=== PATIENT | female | born 1995 | race Caucasian/White ===

== ENCOUNTER 2016-12-18 16:27 | Emergency (ER) | payer BC ==
[~2016-12-18] VITALS: Ht 165.1 cm; Wt 83.1 kg
[2016-12-18 16:36] VITALS: TEMP 36.7; Ht 165.1 cm; Wt 83.1 kg
--- NOTE | 2016-12-18 16:57 | EMERGENCY ROOM VISIT NOTE ---
History Report prepared by [place]: Dalton Giles Under the Supervision of: Dr. Jade Tran D.O. First contact with patient: 16:40 Chief Complaint: CHEST PAIN Stated Complaint: CHEST PAIN,SOB History of Present Illness The patient is a 21 year old female who presents to the Emergency Room with complaints of waxing and waning left-sided chest pain that started 2 nights ago. She says that she was sitting on her couch doing homework during the onset of left-sided chest pain as well as left-sided collar bone pain. The patient states that she thought it was from the position she was sitting in, so she tried to go to bed, but she had trouble sleeping due to worsened pain with breathing as well as worsened pain when laying on her left side. The patient states that she felt better laying on her right side. She notes that she continued to have trouble breathing with pain yesterday. The patient adds that her pain feels better when standing up, and worsened with laying down. She notes that her father has a history of a stroke, so she decided to be seen by her doctor yesterday. The patient had a EKG done there, in addition to a blood test and x-ray. She says that the doctor said that everything was normal, so she was sent home. The patient notes that she was given Ibuprofen, and was told that she should feel better by today. However, she says that her breathing has been worse today, with some pain still, so she sent an e-mail to her doctor, and was told to come in. The patient was then told to come here for further evaluation. She says that she had a cold a couple weeks ago, which has resolved. She denies any recent leg swelling. The patient says that she is on control. She notes that she does not smoke. Source of History: patient Onset: 2 nights ago Position: chest Quality: other (pain) Timing: waxes/wanes Modifying Factors (Worsening): breathing, other (laying down) Modifying Factors (Relieving): other (standing up) Associated Symptoms: + SOB Note: Associated symptoms; Denies recent leg swelling. Review of Systems See HPI for pertinent positives & negatives. A total of 10 systems reviewed and were otherwise negative. Past Medical & Surgical Medical Problems: (1) No pertinent past medical history Family History Stroke Social History Smoking Status: Never Smoker Marital Status: single Housing Status: lives with roommate Occupation Status: [email or web address] student Current/Historical Medications Scheduled Control Pills ( Control Pills), 1 TAB PO DAILY Ginseng (Ginseng), 100 MG PO DAILY Lisdexamfetamine Dimesylate (Vyvanse), 60 MG PO QAM Oregano (Oil Of Oregano), 1,500 MG PO DAILY Allergies Coded Allergies: Benzoyl Peroxide (Unverified Allergy, Unknown, FACIAL SWELLING, 12/18/16) Dairy (Unverified Allergy, Unknown, GI ISSUES, 12/18/16) Gluten (Unverified Allergy, Unknown, GI ISSUES, 12/18/16) Physical Exam Vital Signs Date Time Temp Pulse Resp B/P (MAP) Pulse Ox O2 Delivery O2 Flow Rate FiO2 12/19/16 00:12 62 16 138/87 99 12/18/16 22:46 70 18 142/80 100 Room Air 12/18/16 21:35 64 16 139/89 98 Room Air 12/18/16 19:09 70 16 128/87 100 Room Air 12/18/16 17:29 65 16 140/83 100 Room Air 12/18/16 16:36 36.7 66 20 154/98 100 Room Air Physical Exam GENERAL: alert, well appearing, well nourished, no distress, non-toxic EYE EXAM: normal conjunctiva, PERRL and EOM's grossly intact OROPHARYNX: no exudate, no erythema, lips, buccal mucosa, and tongue normal and mucous membranes are moist NECK: supple, no nuchal rigidity, no adenopathy, non-tender LUNGS: Clear to auscultation. Normal chest wall mechanics HEART: no murmurs, S1 normal and S2 normal ABDOMEN: abdomen soft, non-tender, normo-active bowel sounds, no masses, no rebound or guarding. BACK: Back is symmetrical on inspection and there is no deformity, no midline tenderness, no CVA tenderness. SKIN: no rashes and no bruising UPPER EXTREMITIES: upper extremities are grossly normal. LOWER EXTREMITIES: No pitting edema. NEURO EXAM: Normal sensorium, cranial nerves II-XII grossly intact, normal speech, no gross weakness of arms, no gross weakness of legs. Medical Decision & Procedures ER Provider Diagnostic Interpretation: Radiology results have been interpreted by the radiologist and reviewed by me. CHEST ONE VIEW PORTABLE HISTORY: 21 years-old Female sob, cp acute shortness of breath with atypical chest pain COMPARISON: None available TECHNIQUE: Portable upright AP view of the chest FINDINGS: Cardiomediastinal and hilar silhouettes are within normal limits. There is no pneumothorax, pleural effusion, focal airspace consolidation or overt pulmonary edema. Bones of the chest are grossly intact. IMPRESSION: No acute cardiopulmonary process. The above report was generated using voice recognition software. It may contain grammatical, syntax or spelling errors. Electronically signed by: Albaro Islas M.D. 12/18/2016 5:31 PM Dictated Date/Time: 12/18/2016 5:30 PM (CHEST FOR PE) ANGIO WITH CT DOSE: 370.38 mGy.cm HISTORY: 21 years-old Female presents with acute atypical chest pain TECHNIQUE: Multiple CTA images of the chest were obtained after the intravenous administration of 110 ml Optiray 320. Coronal and sagittal MIPS were obtained from the axial data set and were submitted for review. A dose lowering technique was utilized adhering to the principles of ALARA. COMPARISON: Chest radiograph of same day. FINDINGS: CTA: Heart is normal in size without pericardial effusion. Thoracic aorta is normal in both course and caliber without dissection or aneurysm identified. Imaged proximal great vessels appear patent. The pulmonary arterial tree is well opacified to the level of the proximal segmental branches and demonstrates no focal filling defect to suggest pulmonary thromboembolic disease. CT CHEST: No dominant thyroid nodule is seen. No pathologically adenopathy by CT size criteria. Mild residual thymic tissue. There is no pneumothorax, pleural effusion or focal airspace consolidation. The imaged upper abdominal structures are normal. The osseous structures appear intact. IMPRESSION: No acute intrathoracic abnormality, specifically no acute aortic pathology or evidence of pulmonary thromboembolic disease. The above report was generated using voice recognition software. It may contain grammatical, syntax or spelling errors. Electronically signed by: Albaro Islas M.D. 12/18/2016 11:03 PM Dictated Date/Time: 12/18/2016 10:58 PM Laboratory Results 12/18/16 16:45 Red Blood Count 4.59, Mean Corpuscular Volume 88.5, Mean Corpuscular Hemoglobin 29.2, Mean Corpuscular Hemoglobin Concent 33.0, Mean Platelet Volume 10.4, Neutrophils (%) (Auto) 68.4, Lymphocytes (%) (Auto) 25.0, Monocytes (%) (Auto) 5.4, Eosinophils (%) (Auto) 0.6, Basophils (%) (Auto) 0.4, Neutrophils # (Auto) 7.90, Lymphocytes # (Auto) 2.89, Monocytes # (Auto) 0.62, Eosinophils # (Auto) 0.07, Basophils # (Auto) 0.05 12/18/16 16:45 Test 12/18/16 16:45 12/18/16 16:48 White Blood Count 11.55 K/uL (4.8-10.8) Red Blood Count 4.59 M/uL (4.2-5.4) Hemoglobin 13.4 g/dL (12.0-16.0) Hematocrit 40.6 % (37-47) Mean Corpuscular Volume 88.5 fL (80-100) Mean Corpuscular Hemoglobin 29.2 pg (25-34) Mean Corpuscular Hemoglobin Concent 33.0 g/dl (32-36) Platelet Count 296 K/uL (130-400) Mean Platelet Volume 10.4 fL (7.4-10.4) Neutrophils (%) (Auto) 68.4 % Lymphocytes (%) (Auto) 25.0 % Monocytes (%) (Auto) 5.4 % Eosinophils (%) (Auto) 0.6 % Basophils (%) (Auto) 0.4 % Neutrophils # (Auto) 7.90 K/uL (1.4-6.5) Lymphocytes # (Auto) 2.89 K/uL (1.2-3.4) Monocytes # (Auto) 0.62 K/uL (0.11-0.59) Eosinophils # (Auto) 0.07 K/uL (0-0.5) Basophils # (Auto) 0.05 K/uL (0-0.2) RDW Standard Deviation 43.5 fL (36.4-46.3) RDW Coefficient of Variation 13.5 % (11.5-14.5) Immature Granulocyte % (Auto) 0.2 % Immature Granulocyte # (Auto) 0.02 K/uL (0.00-0.02) Anion Gap 7.0 mmol/L (3-11) Est Creatinine Clear Calc Drug Dose 96.7 ml/min Estimated GFR () 95.6 Estimated GFR (Non- 82.5 BUN/Creatinine Ratio 11.2 (10-20) Calcium Level 9.6 mg/dl (8.5-10.1) Magnesium Level 1.9 mg/dl (1.8-2.4) Total Bilirubin 0.4 mg/dl (0.2-1) Aspartate Amino Transf (AST/SGOT) 14 U/L (15-37) Alanine Aminotransferase (ALT/SGPT) 20 U/L (12-78) Alkaline Phosphatase 67 U/L (45-117) Troponin I < 0.015 ng/ml (0-0.045) Total Protein 7.9 gm/dl (6.4-8.2) Albumin 4.1 gm/dl (3.4-5.0) Globulin 3.8 gm/dl (2.5-4.0) Albumin/Globulin Ratio 1.1 (0.9-2) Thyroid Stimulating Hormone (TSH) 0.906 uIu/ml (0.300-4.500) Human Chorionic Gonadotropin, Qual NEG (NEG) Monoscreen NEG (NEG) D-Dimer 240 ug/L FEU (0-500) Laboratory results per my review. Medications Administered Medications (Trade) Dose Ordered Sig/Kelsey Route Start Time Stop Time Status Last Admin Dose Admin Ketorolac Tromethamine (Toradol Inj) 30 mg NOW STAT IV 12/18/16 18:22 12/18/16 18:23 DC 12/18/16 18:35 30 MG Acetaminophen (Tylenol Tab) 1,000 mg NOW STAT PO 12/18/16 18:55 12/18/16 18:56 DC 12/18/16 19:08 1,000 MG Lidocaine (Lidoderm Patch 5%) 1 patch NOW STAT TD 12/18/16 20:20 12/18/16 20:22 DC 12/18/16 20:25 1 PATCH Tramadol HCl (Ultram Home Pack) 1 homepack UD ONCE PO 12/19/16 00:15 12/19/16 00:16 DC 12/19/16 00:11 1 HOMEPACK ECG Indication: chest pain Rate (beats per minute): 68 Rhythm: normal sinus Findings: no acute ischemic change, no ectopy, other (normal intervals, normal axis) ED Course 1645: The patient was evaluated in room B8. A complete history and physical exam was performed. 1822: Ordered Toradol Inj 30 mg IV. 1850: I reevaluated the patient and she is still having pain and is worsened both with laying down and sitting up. 1854: Ordered Tylenol Tab 1000 mg PO. 2014: I reevaluated the patient and she has not had any change in pain. 2019: Ordered Lidoderm Patch 5% 1 patch TD. 2351: Upon reevaluation, the patient is feeling better. I discussed the findings and the treatment plan with the patient. She verbalizes agreement and understanding. She was discharged home. Medical Decision Differential diagnosis: Etiologies such as cardiac ischemia, aortic dissection, pulmonary embolism, pneumonia, pneumothorax, musculoskeletal, infections, pericarditis, myocarditis , esophageal rupture, gastrointestinal, as well as others were entertained. HEART score 0 CTA negative, no PE/dissection/tamponade/effusion. Pt with negative dimer, however given persistence of what pt stated was moderate to severe pain, CTA ordered additionally. Discussed with pt possibly pleurisy or pericarditis although not classic positional component and no improvement with toradol. Doubt ACS, no evidence of myocarditis. Discussed with pt f/u with PCP/[facility], sx to watch/return for, she verbalized understanding and was agreeable with plan. Doubt bacteremia/sepsis, no recent trauma, no evidence of additional vascular pathology. Medication Reconcilliation Current Medication List: was personally reviewed by me Blood Pressure Screening Patient's blood pressure: Elevated blood pressure Blood pressure disposition: Elevated BP felt to be situational Impression Primary Impression: Chest pain Scribe Attestation The scribe's documentation has been prepared under my direction and personally reviewed by me in its entirety. I confirm that the note above accurately reflects all work, treatment, procedures, and medical decision making performed by me. Departure Information Dispostion Home / Self-Care Referrals [facility] (PCP) Patient Instructions My [facility] Additional Instructions Please continue your regular medications as prescribed. Please use Tylenol and ibuprofen as needed for pain. Please try to stay well-hydrated. You may use the stronger pain medication if needed, do not take it and drive or drink alcohol. If you have any worsening pain, develop fevers, cough, trouble breathing, vomiting, rashes or sores, or you have any other new concerns, please return the emergency room. Your pain may be from a muscle strain, or from inflammation between your lungs and chest wall called pleurisy, or even inflammation around the heart called pericarditis. These can be from the same viruses that cause the common cold. Please avoid any strenuous activity or heavy lifting until you're feeling better. Problem Qualifiers Primary Impression: Chest pain Chest pain type: unspecified Qualified Codes: R07.9 - Chest pain, unspecified
[2016-12-18] MEDS ORDERED: OREGCAP PO (17:24)
[2016-12-18] MEDS ORDERED: BCPILLS PO (17:24)
[2016-12-18] MEDS ORDERED: LISD60CA PO (17:24)
[2016-12-18] MEDS ORDERED: GINS1CAP PO (17:24)
--- NOTE | 2016-12-18 17:32 | DIAGNOSTIC IMAGING REPORT ---
CHEST ONE VIEW PORTABLE HISTORY: 21 years-old Female sob, cp acute shortness of breath with atypical chest pain COMPARISON: None available TECHNIQUE: Portable upright AP view of the chest FINDINGS: Cardiomediastinal and hilar silhouettes are within normal limits. There is no pneumothorax, pleural effusion, focal airspace consolidation or overt pulmonary edema. Bones of the chest are grossly intact. IMPRESSION: No acute cardiopulmonary process. The above report was generated using voice recognition software. It may contain grammatical, syntax or spelling errors. Electronically signed by: Albaro Islas M.D. 12/18/2016 5:31 PM Dictated Date/Time: 12/18/2016 5:30 PM
[2016-12-18 17:45] LABS: BASO % 0.4 %; BASO ABS # 0.05 K/uL (0-0.2); COMPLETE YES; EOS % 0.6 %; HEMATOCRIT 40.6 % (37-47); IG% 0.2 %; LYMPH ABS # 2.89 K/uL (1.2-3.4); MEAN CELL VOLUME 88.5 fL (80-100); MEAN CORPUSCULAR HEMOGLOBIN 29.2 pg (25-34); MEAN PLATELET VOLUME 10.4 fL (7.4-10.4); MONO % 5.4 %; NEUT % 68.4 %; PLATELET COUNT 296 K/uL (130-400); RED BLOOD COUNT 4.59 M/uL (4.2-5.4); WHITE BLOOD COUNT 11.55 K/uL (4.8-10.8)
[2016-12-18 17:50] LABS: PREG INTERNAL NEGATIVE QC NEG CLEAR BACKGROUND; PREG INTERNAL POSITIVE QC POS CONTROL LINE
[2016-12-18 18:01] LABS: ALT/SGPT 20 U/L (12-78); BLOOD UREA NITROGEN 11 mg/dl (7-18); BUN/CREATININE RATIO 11.2 (10-20); CALCIUM 9.6 mg/dl (8.5-10.1); CARBON DIOXIDE 27 mmol/L (21-32); CHLORIDE 104 mmol/L (98-107); CREATININE 0.98 mg/dl (0.60-1.20); GLUCOSE 79 mg/dl (70-99); MAGNESIUM 1.9 mg/dl (1.8-2.4); POTASSIUM 3.9 mmol/L (3.5-5.1); SODIUM 138 mmol/L (136-145)
[2016-12-18 18:11] LABS: ALB/GLOB RATIO 1.1 (0.9-2); ALKALINE PHOSPHATASE 67 U/L (45-117); AST/SGOT 14 U/L (15-37); THYROID STIMULATING HORMONE 0.906 uIu/ml (0.300-4.500)
[2016-12-18] MEDS ORDERED: KETOROLAC TROMETHAMINE 30 MG/ML VIAL IV STA (18:22)
[2016-12-18] MEDS ORDERED: ACETAMINOPHEN 500 MG TAB PO STA (18:55)
[2016-12-18] MEDS ORDERED: LIDODERM (LIDOCAINE) PATCH 5% TD STA (20:20)
[2016-12-18] MEDS ORDERED: OPTIRAY 320 IV PRN (22:15)
--- NOTE | 2016-12-18 23:04 | DIAGNOSTIC IMAGING REPORT ---
(CHEST FOR PE) ANGIO WITH CT DOSE: 370.38 mGy.cm HISTORY: 21 years-old Female presents with acute atypical chest pain TECHNIQUE: Multiple CTA images of the chest were obtained after the intravenous administration of 110 ml Optiray 320. Coronal and sagittal MIPS were obtained from the axial data set and were submitted for review. A dose lowering technique was utilized adhering to the principles of ALARA. COMPARISON: Chest radiograph of same day. FINDINGS: CTA: Heart is normal in size without pericardial effusion. Thoracic aorta is normal in both course and caliber without dissection or aneurysm identified. Imaged proximal great vessels appear patent. The pulmonary arterial tree is well opacified to the level of the proximal segmental branches and demonstrates no focal filling defect to suggest pulmonary thromboembolic disease. CT CHEST: No dominant thyroid nodule is seen. No pathologically adenopathy by CT size criteria. Mild residual thymic tissue. There is no pneumothorax, pleural effusion or focal airspace consolidation. The imaged upper abdominal structures are normal. The osseous structures appear intact. IMPRESSION: No acute intrathoracic abnormality, specifically no acute aortic pathology or evidence of pulmonary thromboembolic disease. The above report was generated using voice recognition software. It may contain grammatical, syntax or spelling errors. Electronically signed by: Albaro Islas M.D. 12/18/2016 11:03 PM Dictated Date/Time: 12/18/2016 10:58 PM
[2016-12-19 00:12] VITALS: BP 138/87; PULSE 62; O2SAT 99
[2016-12-19] MEDS ORDERED: TRAMADOL HCL 50 MG HOME PACK PO ONE (00:15)
== END 2016-12-19 00:14 | disposition home or self-care (01) ==
LOC: C.EDB 16:29
DX: R07.9 Chest pain, unspecified (principal); Z82.3 Family history of stroke